=== PATIENT | male | born 1960 | race Caucasian/White ===

== ENCOUNTER → 2017-11-01 | Outpatient (CLI) | payer OTHER ==
[~2017-11-01] MED LIST: ACET-1175 PO; ASPEC325 PO; CLB200 PO; LISI-461 PO; LORA10TA51 PO; LRT5 PO; SILD100T PO
--- NOTE | 2017-11-01 09:06 | DIAGNOSTIC IMAGING REPORT ---
L ANKLE MIN 3 VIEWS ROUTINE CLINICAL HISTORY: 57 years-old Male presenting with M25.572 Acute left ankle [id number]. TECHNIQUE: Frontal, mortise, and lateral views of the left ankle were obtained. COMPARISON: None. FINDINGS: Ankle mortise intact. No acute fracture or malalignment. Prominent these sites at the insertion of the Achilles tendon and origin of the plantar fascia. No advanced degenerative change. No radiographic soft tissue abnormality. IMPRESSION: No acute osseous injury. Electronically signed by: Sean Bai M.D. 11/01/2017 9:05 AM Dictated Date/Time: 11/01/2017 9:04 AM
--- NOTE | 2017-11-01 09:07 | DIAGNOSTIC IMAGING REPORT ---
R SHOULDER MIN 2 VIEWS ROUTINE CLINICAL HISTORY: 57 years-old Male presenting with M25.511 Chronic right shoulder [id number]. TECHNIQUE: Internal rotation, external rotation, Grashey views of the right shoulder were obtained. COMPARISON: CT of the chest from 05/19/2011. FINDINGS: Glenohumeral and acromioclavicular joints congruent. No acute fracture or malalignment. Mild degenerative changes of the acromioclavicular and glenohumeral joints. No deformity of the humeral head. No advanced degenerative change. No radiographic soft tissue abnormality. Visualized portion of the right hemithorax normal. IMPRESSION: No acute osseous injury. Electronically signed by: Sean Bai M.D. 11/01/2017 9:06 AM Dictated Date/Time: 11/01/2017 9:05 AM
== END | disposition home or self-care (01) ==
LOC: C.RAD1850 08:45
PROVIDERS: ATTEND Nurse Practitioner
DX: M25.572 Pain in left ankle and joints of left foot (principal); M25.511 Pain in right shoulder